=== PATIENT | male | born 1995 | race Native Hawaiian/Other Pacific Islander ===

== ENCOUNTER 2018-05-03 01:35 | Emergency (ER) | payer OTHER ==
[~2018-05-03] VITALS: Ht 154.9 cm; Wt 66.7 kg
[2018-05-03 02:17] LABS: PLATELET COUNT 230 K/uL (142-355)
[2018-05-03 02:18] LABS: POTASSIUM 3.6 mmol/L (3.6-5.2)
[2018-05-07 11:30] VITALS: TEMP 98
[2018-05-09 12:31] VITALS: BP 178/64
== END 2018-05-09 12:33 | disposition home or self-care (01) ==
LOC: ED 01:35
PROVIDERS: Internal Medicine
DX: R45.851 Suicidal ideations (principal)
CPT/HCPCS: 36415; 80053; 80307; 80320; 80329; 81000; 85027; 93005; 99285

== ENCOUNTER 2021-03-29 21:44 | Emergency (ER) | payer OTHER ==
[~2021-03-29] VITALS: Ht 165.1 cm; Wt 59.0 kg
[2021-03-29 21:45] VITALS: BP 133/84; TEMP 98.1
== END 2021-03-29 22:30 | disposition home or self-care (01) ==
LOC: ED 21:44
PROC: 0HQEXZZ Repair Left Lower Arm Skin, External Approach (ICD-10-PCS; principal; 2021-03-29)
DX: S61.512A Laceration without foreign body of left wrist, initial encounter (principal); W26.0XXA Contact with knife, initial encounter; Y92.89 Other specified places as the place of occurrence of the external cause
CPT/HCPCS: 99282; 99283